=== PATIENT | male | born 2000 | race African-American/Black ===

== ENCOUNTER 2022-12-03 14:31 | Emergency (ER) | payer OTHER ==
[~2022-12-03] VITALS: Ht 162.6 cm; Wt 84.8 kg
[2022-12-03] MEDS ORDERED: PERCOCET 5MG/325MG TAB PO ONE (16:55)
[2022-12-03] MEDS ORDERED: CYCL-707 PO (18:00)
[2022-12-03 18:27] VITALS: BP 130/67
== END 2022-12-03 18:30 | disposition home or self-care (01) ==
LOC: M ED 14:31
DX: S13.4XXA Sprain of ligaments of cervical spine, initial encounter (principal); F17.200 Nicotine dependence, unspecified, uncomplicated; V43.62XA Car passenger injured in collision with other type car in traffic accident, initial encounter; Z79.899 Other long term (current) drug therapy